=== PATIENT | female | born 1985 | race Caucasian/White ===

== ENCOUNTER 2016-07-07 20:29 | Emergency (ER) | payer MEDICARE, MEDICAID ==
--- NOTE | 2016-07-07 21:08 | Emergency Department Record ---
History of Present Illness - General Stated Complaint: WANTS TO BE TESTED FOR STD Time Seen by Provider: 07/07/16 20:57 Source: Patient Mode of Arrival: Ambulatory Limitations: No limitations - History of Present Illness Initial Comments: The patient is here due to wanting to be tested for an STD. She states she is in the process of getting from her and he recently has slept with other women one of whom was her sister. She also thinks he may have had bumps on his Penis and due to the divorce and infidelity she contacted her manager banking and was told to get checked out for STD's. She presently denies any pain , discharge, rash, vaginal itching or any lesions. - Related Data Allergies Allergy/AdvReac Type Severity Reaction Status Date / Time amoxicillin [Amoxicillin] Allergy HIVES Unverified 05/27/16 18:47 cephalexin monohydrate Allergy HIVES Unverified 05/27/16 18:47 [From Keflex] Penicillins Allergy HIVES Unverified 05/27/16 18:47 Sulfa (Sulfonamide Allergy "Nicolás Unverified 05/27/16 18:47 Antibiotics) Mir syndrome" Review of Systems Constitutional: Denies: Chills, Fever Eyes: Denies: Eye discharge ENT: Denies: Congestion Respiratory: Denies: Cough, Dyspnea Past Medical History - SOCIAL HISTORY Smoking Status: Former smoker Drug Use: None - RESPIRATORY Hx Respiratory Disorders: No - CARDIOVASCULAR Hx Cardio Disorders: No Hx Hypotension: Yes Comment:: tachycardia, "right valve deficiency" - NEURO Hx Neuro Disorders: No - GI Hx GI Disorders: No - Hx Genitourinary Disorders: No - ENDOCRINE Hx Endocrine Disorders: No - MUSCULOSKELETAL Hx Musculoskeletal Disorders: No Hx Gout: Yes Hx Osteoporosis: Yes Comment:: osteoarthritis - PSYCH Hx Psych Problems: No - HEMATOLOGY/ONCOLOGY Hx Hematology/Oncology Disorders: No Family Medical History Hx Cancer: Father, Brother/Sister, Grandparents *Cancer Comment: and aunt Hx Heart Disease: Father Physical Exam - General General Appearance: Alert, Oriented x3, Cooperative, No acute distress - Head Head exam: Atraumatic, Normocephalic, Normal inspection - Eye Eye exam: Normal appearance, PERRL - Neck Neck exam: Normal inspection, Full ROM. negative: Tenderness - Respiratory Respiratory exam: Normal lung sounds bilaterally. negative: Respiratory distress - Cardiovascular Cardiovascular Exam: Regular rate, Normal rhythm, Normal heart sounds - GI/Abdominal GI/Abdominal exam: Soft, Normal bowel sounds. negative: Rebound, Rigid, Tenderness - Extremities Extremities exam: Normal inspection, Full ROM, Normal capillary refill. negative: Tenderness Course Vital Signs 07/07/16 20:53 Temperature 98.4 F Pulse Rate [ 73 Pulse Ox Probe] Respiratory 18 Rate Blood Pressure 107/61 [Left Arm] Pulse Ox 99 - Reevaluation(s) Reevaluation #1: I did discuss the need to F/U with her PCP for the full evaluation of STD's including Hepatitis, Syphylis, and HIV. 07/07/16 21:20 Disposition Disposition: Discharge Clinical Impression: Exposure to STD Disposition: Home, Self-Care Condition: (1) Good Instructions: Safe Sex (ED) Additional Instructions: Please see your PCP for further evaluation. Forms: Patient Portal Access Time of Disposition: 21:19
[2016-07-07 21:12] LABS: URINE APPEARANCE CLOUDY; URINE BILIRUBIN NEGATIVE (NEGATIVE); URINE BLOOD NEGATIVE (NEGATIVE); URINE COLOR YELLOW; URINE GLUCOSE (UA) NEGATIVE (NEGATIVE); URINE KETONE NEGATIVE (NEGATIVE); URINE LEUKOCYTE ESTERASE NEGATIVE (NEGATIVE); URINE NITRITE NEGATIVE (NEGATIVE); URINE PROTEIN NEGATIVE (NEGATIVE); URINE UROBILINOGEN 0.2 E.U./dL (0.20 - 1.00)
[2016-07-07 21:14] LABS: HCG,QUALITATIVE URINE NEGATIVE (NEGATIVE)
[2016-07-09 23:42] LABS: GC SPECIMEN TYPE Urine (())
== END 2016-07-07 21:32 | disposition home or self-care (01) ==
LOC: ER 20:29
DX: Z20.2 Contact with and (suspected) exposure to infections with a predominantly sexual mode of transmission (principal)
CPT/HCPCS: 81003; 81025; 99283

== ENCOUNTER 2016-10-30 22:42 | Emergency (ER) | payer MEDICARE, MEDICAID ==
[2016-10-30] MEDS ORDERED: KETOROLAC 30 MG/ML VIAL IVP ONE (23:05)
[2016-10-30] MEDS ORDERED: ONDANSETRON HCL IV 4 MG/2 ML VIAL IVP ONE (23:05)
--- NOTE | 2016-10-30 23:09 | Emergency Department Record ---
History of Present Illness - General Chief complaint: Nausea, Vomiting, Diarrhea Stated complaint: BACK PAIN,ABD PAIN Time Seen by Provider: 10/30/16 23:00 Source: Patient Mode of Arrival: Ambulatory Limitations: No limitations - History of Present Illness Initial comments: 30 yo female presents to ED with a CC of nausea, vomiting, and loose stools for the past 2-3 days associated with left sided flank pain symptoms. Patient denies urinary symptoms, denies fevers, chills, or recent illness. Patient denies health problems other than previous ablation. MD complaint: Abdominal pain, Nausea, Vomiting Onset/Timin -: Days(s) Location: LLQ, RLQ Radiation: L flank Severity scale (1-10): >10 Quality: Other Consistency: Getting worse Improves with: None Worsens with: None Context: Other Associated Symptoms: Nausea/vomiting - Related Data Previous Rx's Medication Instructions Recorded Hyoscyamine Sulfate [Levsin-Sl] 0.25 mg SL Q8H PRN #15 tab.subl 10/31/16 Ondansetron [Zofran Odt] 4 mg PO Q8H PRN #15 tab.rapdis 10/31/16 Allergies Allergy/AdvReac Type Severity Reaction Status Date / Time adhesive tape Allergy RASH Verified 10/30/16 22:53 amoxicillin [Amoxicillin] Allergy HIVES Verified 10/30/16 22:53 cephalexin monohydrate Allergy HIVES Verified 10/30/16 22:53 [From Keflex] Penicillins Allergy HIVES Verified 10/30/16 22:53 Sulfa (Sulfonamide Allergy "Nicolás Verified 10/30/16 22:53 Antibiotics) Mir syndrome" Travel Screening - Travel/Exposure Within Last 30 Days Have you traveled within the last 30 days?: No - Travel/Exposure Within Last Year Have you traveled outside the [place] in the last year?: No - Additonal Travel Details Have you been exposed to anyone with a communicable illness?: No Review of Systems Constitutional: Denies: Chills, Fever, Malaise, Night sweats Eyes: Denies: Eye discharge, Eye pain ENT: Denies: Congestion, Ear pain, Epistaxis Respiratory: Denies: Cough, Dyspnea Cardiovascular: Denies: Chest pain, Dyspnea on exertion Endocrine: Denies: Fatigue, Heat or cold intolerance Gastrointestinal: Reports: Abdominal pain, Nausea, Vomiting Genitourinary: Denies: Dysuria, Frequency Musculoskeletal: Denies: Arthralgia, Back pain, Gout, Joint swelling Skin: Denies: Bruising, Change in color Neurological: Denies: Abnormal gait, Confusion, Headache, Seizure Psychiatric: Denies: Anxiety Hematological/Lymphatic: Denies: Anemia, Blood Clots Past Medical History - SOCIAL HISTORY Smoking Status: Current every day smoker Alcohol Use: None Drug Use: None - RESPIRATORY Hx Respiratory Disorders: No - CARDIOVASCULAR Hx Cardio Disorders: No Hx Hypotension: Yes Comment:: tachycardia, "right valve deficiency" - NEURO Hx Neuro Disorders: No - GI Hx GI Disorders: No - Hx Genitourinary Disorders: No - ENDOCRINE Hx Endocrine Disorders: No - MUSCULOSKELETAL Hx Musculoskeletal Disorders: No Hx Gout: Yes Hx Osteoporosis: Yes Comment:: osteoarthritis - PSYCH Hx Psych Problems: No Hx Anxiety: Yes Hx Depression: Yes - HEMATOLOGY/ONCOLOGY Hx Hematology/Oncology Disorders: No Family Medical History Any Significant Family History?: Yes Hx Cancer: Father, Brother/Sister, Grandparents *Cancer Comment: and aunt Hx Heart Disease: Father Physical Exam - General General Appearance: Alert, Oriented x3, Cooperative, Moderate distress, Anxious Limitations: No limitations - Head Head exam: Atraumatic, Normocephalic, Normal inspection Head exam detail: negative: Abrasion, Contusion, Dillard's sign, General tenderness, Hematoma, Laceration - Eye Eye exam: Normal appearance. negative: Conjunctival injection, Periorbital swelling, Periorbital tenderness, Scleral icterus - ENT Ear exam: negative: Auricular hematoma, Auricular trauma Nasal Exam: negative: Active bleeding, Discharge, Dried blood, Foreign body Mouth exam: negative: Drooling, Laceration, Muffled voice, Tongue elevation - Neck Neck exam: Normal inspection. negative: Meningismus, Tenderness - Respiratory Respiratory exam: Normal lung sounds bilaterally. negative: Rales, Respiratory distress, Rhonchi, Stridor - Cardiovascular Cardiovascular Exam: Regular rate, Normal rhythm, Normal heart sounds - GI/Abdominal GI/Abdominal exam: Soft, Tenderness (TTP LUQ, LLQ on examination, no rebound, no guarding present). negative: Rebound, Rigid - Rectal Rectal exam: Deferred - exam: Deferred - Extremities Extremities exam: Normal inspection. negative: Calf tenderness, Pedal edema, Tenderness - Back Back exam: Reports: CVA tenderness (L). Denies: CVA tenderness (R) - Neurological Neurological exam: Alert, Normal gait, Oriented X3 - Psychiatric Psychiatric exam: Anxious - Skin Skin exam: Normal color. negative: Abrasion Type of lesion: negative: abrasion Course Vital Signs 10/30/16 22:47 Temperature 99.2 F Pulse Rate 73 Respiratory 26 H Rate Blood Pressure 140/71 Pulse Ox 99 - Reevaluation(s) Reevaluation #1: 10/30/16 23:33 Labs reviewed and are grossly unremarkable for an acute process. CT ordered and is pending. Reevaluation #2: 10/31/16 00:25 CT Abdomen and Pelvis: 3 cm left ovarian cyst, otherwise negative examination. Patient reassessed and updated on all results, appears stable for discharge with symptomatic treatment of her nausea/loose stools symptoms. Patient agrees with plan as discussed. Medical Decision Making - Lab Data Result diagrams: 10/30/16 23:00 10/30/16 23:00 Disposition Disposition: Discharge Clinical Impression: Nausea & vomiting Qualifiers: Vomiting type: unspecified Vomiting Intractability: non-intractable Qualified Code(s): R11.2 - Nausea with vomiting, unspecified Abdominal pain Qualifiers: Abdominal location: left lower quadrant Qualified Code(s): R10.32 - Left lower quadrant pain Disposition: Home, Self-Care Condition: (2) Stable Instructions: Acute Nausea and Vomiting (ED) Additional Instructions: Return to ED if your symptoms worsen or if you have any concerns. Zofran and Levsin as directed. Follow-up with your family doctor in 1-3 days as directed. Prescriptions: Hyoscyamine Sulfate [Levsin-Sl] 0.25 mg SL Q8H PRN #15 tab.subl PRN Reason: Abdominal Pain Ondansetron [Zofran Odt] 4 mg PO Q8H PRN #15 tab.rapdis PRN Reason: Nausea/Vomiting Forms: Patient Portal Access Time of Disposition: 00:30
[2016-10-30] MEDS ORDERED: 0.9 % SODIUM CHLORIDE 1000ML 1,000 ML IV SCH (23:15)
[2016-10-30 23:19] LABS: URINE APPEARANCE CLEAR; URINE BILIRUBIN NEGATIVE (NEGATIVE); URINE BLOOD NEGATIVE (NEGATIVE); URINE COLOR YELLOW; URINE GLUCOSE (UA) NEGATIVE (NEGATIVE); URINE KETONE NEGATIVE (NEGATIVE); URINE LEUKOCYTE ESTERASE NEGATIVE (NEGATIVE); URINE NITRITE NEGATIVE (NEGATIVE); URINE PROTEIN NEGATIVE (NEGATIVE); URINE UROBILINOGEN 0.2 E.U./dL (0.20 - 1.00)
[2016-10-30 23:22] LABS: BASO % 0.3 % (0-6); EOS % 1.1 % (0-6); GRAN % 62.7 % (47-80); HEMATOCRIT 34.8 % (35.0-47.0); HEMOGLOBIN 12.1 gm/dl (11.6-16.0); LYMPH % 26.5 % (16-45); MEAN CELL VOLUME 86.4 fl (81-97); MEAN CORPUSCULAR HGB CONC 34.8 g/dl (32-36); MEAN PLATELET VOLUME 10.7 fl (7.4-10.4); MONO % 9.4 % (0-9); PLATELET COUNT 208 K/uL (130-400); RED BLOOD COUNT 4.03 M/uL (3.80-5.40); WHITE BLOOD COUNT W/O DIFF 9.8 K/uL (4.2-12.2)
[2016-10-30 23:29] LABS: ALB/GLOB RATIO 1.6 (1.1-1.8); ALBUMIN 3.9 gm/dL (3.5-5.0); ALKALINE PHOSPHATASE 75 U/L (38-126); ALT/SGPT 25 U/L (9-52); ANION GAP 6.4 (7-16); AST/SGOT 17 U/L (14-36); BILIRUBIN,TOTAL 0.36 mg/dL (0.2-1.3); BLOOD UREA NITROGEN 9 mg/dL (7-17); CARBON DIOXIDE 22.6 mmol/L (22-30); CREATININE 0.9 mg/dL (0.52-1.04); EST GLOMERULAR FILTRATION RATE > 60 ml/min; GLUCOSE,RANDOM 84 mg/dL (70-110); LIPASE 253 U/L (23-300); TOTAL PROTEIN 6.4 gm/dL (6.3-8.2)
[2016-10-31] MEDS ORDERED: MORPHINE SULFATE 5 MG/ML PFS IVP ONE (00:12)
--- NOTE | 2016-11-06 04:17 | CT SCAN REPORT ---
EXAM: CT SCAN ABDOMEN/PELVIS W CONTRAST HISTORY: ABDOMINAL PAIN. TECHNIQUE: Sequential axial images were obtained from the diaphragms through the ischiorectal fossa after intravenous administration of 100 mL of Omnipaque- 300 contrast material. FINDINGS: The gallbladder is contracted. There is mild intrahepatic ductal dilatation. No extrahepatic ductal dilatation is appreciated. The pancreas and spleen appear normal. The adrenal glands and kidneys appear normal. The small bowel appears normal. There is a 3 cm left adnexal cyst. There is likely fibroid change within the uterus. The urinary bladder appears normal. The appendix is visualized and appears normal. The osseous structures are normal. IMPRESSION: 1. A 3 CM LEFT ADNEXAL CYST. 2. CONTRACTED GALLBLADDER WITH MILD INTRAHEPATIC DUCTAL DILATATION. JOB NUMBER: [id number] MTDD
== END 2016-10-31 00:47 | disposition home or self-care (01) ==
LOC: ER 22:42
DX: R11.2 Nausea with vomiting, unspecified (principal); R19.7 Diarrhea, unspecified; R10.32 Left lower quadrant pain; N83.202 Unspecified ovarian cyst, left side
CPT/HCPCS: 99284 ×2; 96374; 96375; 96361; 83690; 85025; 80053; 81003; 81025; 74177; Q9967; J1885; J2405; J2270; J7030

== ENCOUNTER 2017-02-06 12:43 | Emergency (ER) | payer MEDICARE, MEDICAID ==
--- NOTE | 2017-02-06 13:09 | Emergency Department Record ---
History of Present Illness - General Chief Complaint: Fall Injury Stated Complaint: FALL INJURY,VAGINAL AREA Time Seen by Provider: 02/06/17 13:01 Source: Patient Mode of Arrival: Ambulatory Limitations: No limitations - History of Present Illness Initial Comments: 31 yo female presents after falling. She was cleaning a herd wood floor and slipped on the slippery floor. She landed on her pubic bone/palvis area. She did not hit her head. No chest or abdominal pain. No back pain. The injury occurred just prior to arrival. No bleeding. She is ambulating without difficulty. MD Complaint: Fall -: Hour(s) (1) Fall From: Standing When Fall Occurred: Just prior to arrival Fall Witnessed: No Place Fall Occurred: Home Loss of Consciousness: None Prolonged Down Time?: No Symptoms Prior to Fall: None Location: Other (pelvis) Severity: Moderate Quality: Aching Associated Symptoms: Denies - [place] Coma Scale Eye Response: (4) Open spontaneously Motor Response: (6) Obeys commands Verbal Response: (5) Oriented Ciro Total: 15 - Related Data Home Medications Medication Instructions Recorded Confirmed Last Taken Escitalopram Oxalate [Lexapro] 20 mg PO DAILY 02/06/17 02/06/17 02/06/17 Hydrocodone/Acetaminophen 7.5 mg PO ASDIR PRN 02/06/17 02/06/17 02/05/17 [Hydrocodone/Acetaminophen 7.5mg/325mg] Allergies Allergy/AdvReac Type Severity Reaction Status Date / Time adhesive tape Allergy RASH Verified 02/06/17 13:11 amoxicillin [Amoxicillin] Allergy HIVES Verified 02/06/17 13:11 cephalexin monohydrate Allergy HIVES Verified 02/06/17 13:11 [From Keflex] Penicillins Allergy HIVES Verified 02/06/17 13:11 Sulfa (Sulfonamide Allergy "Nicolás Verified 02/06/17 13:11 Antibiotics) Mir syndrome" Review of Systems Constitutional: Denies: Chills, Fever, Weakness Eyes: Denies: Eye discharge, Eye pain ENT: Denies: Congestion, Dental pain, Throat pain Respiratory: Denies: Cough, Dyspnea Cardiovascular: Denies: Chest pain, Palpitations, Syncope Endocrine: Denies: Fatigue Gastrointestinal: Reports: As per HPI, Abdominal pain. Denies: Diarrhea, Nausea , Vomiting Genitourinary: Denies: Dysuria, Urgency Musculoskeletal: Denies: Arthralgia, Back pain, Joint swelling, Myalgia Skin: Denies: Bruising, Change in color, Rash Neurological: Denies: Headache, Numbness, Weakness Psychiatric: Denies: Anxiety Hematological/Lymphatic: Denies: Easy bleeding, Easy bruising Past Medical History - SOCIAL HISTORY Smoking Status: Current every day smoker Drug Use: None - RESPIRATORY Hx Respiratory Disorders: No - CARDIOVASCULAR Hx Cardio Disorders: No Hx Hypotension: Yes Comment:: tachycardia, "right valve deficiency" - NEURO Hx Neuro Disorders: No - GI Hx GI Disorders: No - Hx Genitourinary Disorders: No - ENDOCRINE Hx Endocrine Disorders: No - MUSCULOSKELETAL Hx Musculoskeletal Disorders: No Hx Gout: Yes Hx Osteoporosis: Yes Comment:: osteoarthritis - PSYCH Hx Psych Problems: No Hx Anxiety: Yes Hx Depression: Yes - HEMATOLOGY/ONCOLOGY Hx Hematology/Oncology Disorders: No Family Medical History Hx Cancer: Father, Brother/Sister, Grandparents *Cancer Comment: and aunt Hx Heart Disease: Father Physical Exam - General General Appearance: Alert, Oriented x3, Cooperative, No acute distress Limitations: No limitations - Head Head exam: Atraumatic, Normocephalic, Normal inspection - Eye Eye exam: Normal appearance. negative: Conjunctival injection, Periorbital swelling - ENT ENT exam: Normal exam, Mucous membranes moist Ear exam: Normal external inspection Nasal Exam: Normal inspection Mouth exam: Normal external inspection - Neck Neck exam: Normal inspection, Full ROM. negative: Tenderness - Respiratory Respiratory exam: Normal lung sounds bilaterally. negative: Respiratory distress - Cardiovascular Cardiovascular Exam: Regular rate, Normal rhythm, Normal heart sounds - GI/Abdominal GI/Abdominal exam: Soft, Tenderness (tender in the bony pubic area). negative: Distended, Guarding, Rebound, Rigid - Rectal Rectal exam: Deferred - exam: negative: Abnormal external exam, Vaginal bleeding, Vaginal discharge - Extremities Extremities exam: Normal inspection, Full ROM, Tenderness (very mild left elbow tenderness, full ROM, no deformity). negative: Joint swelling Image of Full Body: 1 - tender across pubic bone, no bruising, abrasions, or obvious swellling - Back Back exam: Reports: Normal inspection, Full ROM. Denies: Muscle spasm, Rash noted, Tenderness - Neurological Neurological exam: Alert, Normal gait, Oriented X3 - Psychiatric Psychiatric exam: Normal affect, Normal mood - Skin Skin exam: Dry, Intact, Normal color, Warm Course - Reevaluation(s) Reevaluation #1: The UA is negative The UCG is negative The patient spontaneously voided XR is negative 02/06/17 14:24 Disposition Disposition: Discharge Clinical Impression: Pelvic contusion Qualifiers: Encounter type: initial encounter Qualified Code(s): S30.0XXA - Contusion of lower back and pelvis, initial encounter Disposition: Home, Self-Care Condition: (1) Good Instructions: Contusion in Adults (ED) Additional Instructions: Return if you have uncontrolled pain, unable to urinate, blood in the urine or any new concerns Forms: Patient Portal Access Time of Disposition: 14:26 Quality - Quality Measures Quality Measures: N/A - Blood Pressure Screening Does Patient Have Any of the Following: No Blood Pressure Classification: Normal BP Reading Systolic Measurement: 98 Diastolic Measurement: 71 Screening for High Blood Pressure: < Normal BP, F/U Not Required > [[id number]] Pre-Hypertensive Follow-up Interventions: Referral to alternative/primary care provider.
[2017-02-06 13:33] LABS: URINE APPEARANCE CLEAR; URINE BILIRUBIN NEGATIVE (NEGATIVE); URINE BLOOD NEGATIVE (NEGATIVE); URINE COLOR YELLOW; URINE GLUCOSE (UA) NEGATIVE (NEGATIVE); URINE KETONE NEGATIVE (NEGATIVE); URINE LEUKOCYTE ESTERASE NEGATIVE (NEGATIVE); URINE NITRITE NEGATIVE (NEGATIVE); URINE PROTEIN NEGATIVE (NEGATIVE); URINE UROBILINOGEN 0.2 E.U./dL (0.20 - 1.00)
--- NOTE | 2017-02-07 07:47 | RADIOLOGY REPORT ---
EXAM: PELVIS, THREE VIEWS HISTORY: FALL MIDLINE PAIN SYMPHYSIS PUBIS REGION. TECHNIQUE: Three views of the pelvis were obtained. Comparison: Pelvis CT 12/05/12. Encounter: Initial. FINDINGS: Metallic curvilinear density projects 5 cm caudal to the symphysis pubis presumably extrinsic to the patient. This measures 11 mm in length. No acute fractures. The femoroacetabular joint spaces are preserved. The sacrum is intact. IMPRESSION: 1. NO ACUTE OSSEOUS ABNORMALITY OF THE PELVIS. 2. CURVILINEAR METALLIC DENSITY SUBJACENT TO THE SYMPHYSIS PUBIS PRESUMABLY EXTRINSIC TO THE PATIENT. JOB NUMBER: [id number] MTDD
== END 2017-02-06 14:32 | disposition home or self-care (01) ==
LOC: ER 12:43
DX: S30.0XXA Contusion of lower back and pelvis, initial encounter (principal); M25.522 Pain in left elbow; W01.0XXA Fall on same level from slipping, tripping and stumbling without subsequent striking against object, initial encounter; Y93.E5 Activity, floor mopping and cleaning; Y92.009 Unspecified place in unspecified non-institutional (private) residence as the place of occurrence of the external cause
CPT/HCPCS: 72190; 81003; 81025; 99283